=== PATIENT | female | born 1960 | race Caucasian/White ===

== ENCOUNTER 2021-12-28 20:10 | Emergency (ER) | payer OTHER ==
[~2021-12-28] VITALS: Ht 152.4 cm; Wt 51.0 kg
[2021-12-28 20:44] VITALS: BP 133/72
[2021-12-28] MEDS ORDERED: KETOROLAC 15MG/ML VIAL IM ONE (21:00)
[2021-12-28 23:15] LABS: CHLORIDE 103 mEq/L (98-107)
[2021-12-28 23:21] LABS: HEMATOCRIT 36.4 % (36.0-48.0); HEMOGLOBIN 12.7 g/dL (12.0-16.0); MEAN CORPUSCULAR HEMOGLOBIN 31.7 pg (28.0-32.0); MEAN CORPUSCULAR VOLUME 90.8 fL (81.0-99.0); PLATELET 206 x1000/uL (130-400); RED BLOOD CELL COUNT 4.01 mill/uL (4.2-5.4); RED CELL DISTRIBUTION WIDTH 13.3 % (11.6-14.6)
== END 2021-12-29 00:37 | disposition home or self-care (01) ==
LOC: ER 20:10
DX: M94.0 Chondrocostal junction syndrome [Tietze] (principal); G40.909 Epilepsy, unspecified, not intractable, without status epilepticus; K58.9 Irritable bowel syndrome, unspecified; Z98.49 Cataract extraction status, unspecified eye; Z88.8 Allergy status to other drugs, medicaments and biological substances; Z91.040 Latex allergy status; Z88.0 Allergy status to penicillin
CPT/HCPCS: 36415; 71045; 80053; 83690; 85027; 99284; J1885